=== PATIENT | male | born 1965 | race African-American/Black ===

== ENCOUNTER 2024-08-11 16:23 | Emergency (ER) | payer OTHER ==
[~2024-08-11] VITALS: Ht 182.9 cm; Wt 101.6 kg
--- NOTE | 2024-08-11 16:35 | ERN ---
ED Note History of Present Illness Stated Complaint: FEVER S/P ABDOMINAL SX Chief Complaint: Abdominal Pain Time Seen by MD: 16:28 Dictation: PATIENT IS A 58-YEAR-OLD MALE WHO IS STATUS POST A HERNIA REPAIR AT [facility] BY DR. BRENT GUARDADO, THIS WAS DONE IN JULY 01, 2024. HE HAS HAD DRAINAGE FROM THE SURGICAL SITE IN HIS HAS BEEN BACK MULTIPLE TIMES TO THE HOSPITAL THERE IN [place], DOES NOT WANT TO SEE THE SURGEON AGAIN. HE IS HAVING FEVER AND CHILLS WITH FOUL-SMELLING DRAINAGE FROM THE SURGICAL SITE. NO NAUSEA NO VOMITING NO DIARRHEA Allergies: Coded Allergies: No Known Drug Allergies (Unverified Allergy, Unknown, 08/11/24) Home Meds Active Scripts Acetaminophen with Codeine (Acetaminophen-Cod #3 Tablet) 300 Mg-30 Mg Tablet, 1 TAB PO Q4H PRN for MODERATE TO SEVERE PAIN, #15 TAB 0 Refills Prov:RODRIGO DALAL NP 08/11/24 Amoxicillin/Potassium Clav (Amox Tr-K Clv 875-125 mg Tab) 875 Mg-125 Mg Tablet, 1 EACH PO BID for 5 Days, #10 TAB 0 Refills Prov:RODRIGO DALAL NP 08/11/24 Past Medical History Past Medical History: CAD, CVA, Diabetes-Type II, Hypertension, HI Surgical History: CABG, Other Surgical History Other: HERNIA REPAIR RN Note Reviewed/Agreed w/PFSH: Yes Review of System Dictation CONSTITUTIONAL: NEGATIVE EXCEPT FOR HPI FEVER CHILLS HEAD/FACE: NEGATIVE EXCEPT FOR HPI EENT: NEGATIVE EXCEPT FOR HPI RESPIRATORY: NEGATIVE EXCEPT FOR HPI GASTROINTESTINAL/ABDOMINAL: NEGATIVE EXCEPT FOR HPI MIDLINE ABDOMINAL INCISION TENDER TO TOUCH GENITOURINARY: NEGATIVE EXCEPT FOR HPI MUSCULOSKELETAL: NEGATIVE EXCEPT FOR HPI INTEGUMENTARY: NEGATIVE EXCEPT FOR HPI MIDLINE ABDOMINAL INCISION WITH FOUL- SMELLING DRAINAGE NEUROLOGICAL/PSYCH: NEGATIVE EXCEPT FOR HPI HEMATOLOGIC/LYMPHATIC: NEGATIVE EXCEPT FOR HPI ALL SYSTEMS NEGATIVE, EXCEPT NOTED ABOVE. 13 POINT REVIEW OF SYSTEMS ASSESSED AND ALL NEGATIVE EXCEPT FOR ABOVE. Initial Vital Sign VS Vital Signs Date Time Temp Pulse Resp B/P (MAP) Pulse Ox O2 Delivery O2 Flow Rate FiO2 08/11/24 16:25 98.8 48 20 127/81 99 Room Air 0 08/11/24 17:00 21 Physical Exam Dictation VITAL SIGNS REVIEWED GENERAL APPEARANCE: ALERT, ORIENTED X 3, MODERATE ACUTE DISTRESS, WELL DEVELOPED, NOURISHED. HEAD AND FACE: NON-TRAUMATIC. EYES: PERRL, PINK CONJUNCTIVAS, EYELID NO TRAUMA, ANTERIOR CHAMBER WITH ARCUS SENILIS. EARS: PINNAS INTACT AND NO SIGNS OF TRAUMA OR ERYTHEMA EAR CANALS CLEAR AND NO D ISCHARGE TM NO ERYTHEMA NOSE: NO DISCHARGE, NO BLEEDING. OROPHARYNX: MOUTH NORMAL, TONGUE PINK, PHARYNX CLEAR,NO ERYTHEMA, TONSILS NO EXUDATES, NO ABSCESSES NOTED, MUCOUS MEMBRANE MOIST NECK: SUPPLE, NON-TENDER, NO THYROMEGALY, NO MASSES, NO JVD, NO BRUITS BREAST:DEFERRED CHEST:NO TENDERNESS, NO CREPITUS, NO PARADOXICAL MOVEMENT, NO RETRACTIONS LUNGS:CLEAR, WELL-VENTILATED, SYMMETRIC, NO RALES, NO WHEEZING, NO RHONCHI, NO STRIDOR, GOOD BREATH SOUNDS BILATERALLY HEART: REGULAR RATE, REGULAR RHYTHM, NO MURMUR, NO GALLOPS VASCULAR: NO PERIPHERAL EDEMA, ABDOMEN: SOFT, POSITIVE BOWEL SOUNDS, NONDISTENDED, NO GUARDING, POORLY GRANULATING MIDLINE ABDOMINAL INCISION WITH FOUL-SMELLING DRAINAGE. TENDER TO THE PERIMETER OF THE INCISION. RECTAL: DEFERRED GENITAL: DEFERRED NEUROLOGICAL: NORMAL SPEECH, MOTOR FUNCTION INTACT, SENSORY FUNCTION INTACT MUSCULOSKELETAL: NECK NONTENDER, FULL RANGE OF MOTION, BACK NONTENDER, FULL RANGE OF MOTION, EXTREMITIES: NONTENDER, FULL RANGE OF MOTION SKIN: COLOR PINK, DRY, NO TURGOR, NO RASH, NO LACERATIONS, NO ABRASIONS, NO CONTUSIONS. LYMPHATIC: DEFERRED Results (Laboratory/Radiology) Laboratory/Radiology Laboratory Tests Test 08/11/24 16:51 White Blood Count 8.3 K/uL (4.8-10.8) Red Blood Count 4.82 MIL/uL (4.50-6.20) Hemoglobin 14.3 g/dL (14.0-18.0) Hematocrit 44.1 % (42-54) Mean Corpuscular Volume 91.5 fL (79-99) Mean Corpuscular Hemoglobin 29.7 pg (27.0-33.0) Mean Corpuscular Hemoglobin Concent 32.4 g/dL (32.0-36.0) Red Cell Distribution Width 14.6 % (11.0-15.5) Platelet Count 338 K/uL (130-400) Mean Platelet Volume 10.0 fL (7.5-10.5) Immature Granulocyte % (Auto) 0.4 % (0-1) Neutrophils (%) (Auto) 49.3 % (40.0-77.0) Lymphocytes (%) (Auto) 36.1 % (21.0-51.0) Monocytes (%) (Auto) 10.3 % (3.0-13.0) Eosinophils (%) (Auto) 3.4 % (0.0-8.0) Basophils (%) (Auto) 0.5 % (0.0-5.0) Neutrophils # (Auto) 4.1 K/uL (1.8-7.7) Lymphocytes # (Auto) 3.0 K/uL (1.0-4.8) Monocytes # (Auto) 0.9 K/uL (0.1-1.0) Eosinophils # (Auto) 0.28 K/uL (0.00-0.70) Basophils # (Auto) 0.04 K/uL (0.00-0.20) Absolute Immature Granulocyte (auto 0.03 K/uL (0-1) Nucleated Red Blood Cells 0.0 % (0.0-0.19) Sodium Level 143 mmol/L (136-145) Potassium Level 3.8 mmol/L (3.5-5.1) Chloride Level 103 mmol/L (101-111) Carbon Dioxide Level 29 mmol/L (21-32) Blood Urea Nitrogen 14 mg/dL (7-18) Creatinine 1.4 mg/dL (0.5-1.3) H Glomerular Filtration Rate Calc 59 mL/min (>90) Random Glucose 121 mg/dL (70-105) H Lactic Acid Level 2.3 mmol/L (0.8-2.5) Total Calcium 9.6 mg/dL (8.5-10.1) CT was performed with one or more of the following dose reduction techniques: Automated exposure control, adjustment of the mA and/or kV according to patient size, or use of iterative reconstruction technique. COMPARISON: None FINDINGS: ABDOMEN: Small organized subcutaneous fluid collection along midline mid abdomen at the incision site beginning above the level of the umbilicus with early peripheral enhancement associated. Heart size is normal. Visible lung bases are clear. The liver is normal in size and smooth in contour without lesions or biliary duct dilation. The spleen is normal in size without lesions. The gallbladder appears normal. The pancreas appears normal without pancreatic duct dilation. The adrenal glands appear normal. Small simple left renal cyst, and right kidney appears normal. Cortical nephrograms are symmetric and normal in appearance bilaterally. No evidence for intra-abdominal free air or organized fluid collection. No retrocrural, intraabdominal, or retroperitoneal lymphadenopathy identified. Mild soft and hard plaque formation along the abdominal aortic and iliac vessel man without aneurysmal dilation or dissection. PELVIS: Small to medium-sized fluid-containing nonobstructing right inguinal hernia. No evidence for free air or organized pelvic fluid collection. No significant pelvic adenopathy detected. Visualized small and large bowel loops appear unremarkable. Terminal ileum appears normal. The appendix appears normal. The urinary bladder appears unremarkable. Visible osseous structures are intact. IMPRESSION: 1. Small organized subcutaneous fluid collection along midline mid abdomen at the incision site beginning above the level of the umbilicus with early peripheral enhancement associated suggesting evolving abscess. 2. Small to medium-sized fluid-containing nonobstructing right inguinal hernia. 3. No evidence for any acute intra-abdominal or pelvic process. Labs Reviewed?: Yes ED Course ED Course Orders Procedure Category Date Status Time Blood Cult TONEY 08/11/24 In Process 16: Lactic Acid LAB 08/11/24 Complete 16: Aerobic Culture TONEY 08/11/24 In Process 16: Cbc With Differential LAB 08/11/24 Complete 16: Ct Abdomen/Pelvis CT 08/11/24 Resulted W/Contrast 16:31 0.9%Nacl 1000ml (Ns PHA 08/11/24 Complete 1000ml) 17:00 Ketorolac PHA 08/11/24 Complete Tromethamine 30mg/Ml 17:00 Basic Metabolic Panel LAB 08/11/24 Complete 16:31 Iohexol (Omnipaque) PHA 08/11/24 Complete 17:46 Zosyn 3.375gm+Ns 50ml PHA 08/11/24 Complete (Zosyn 3.375gm+Ns 19:00 Current Medications Medications (Trade) Dose Ordered Sig/French Route PRN Reason Start Time Stop Time Status Last Admin Dose Admin Iohexol (Omnipaque) 75 ml STK-MED ONCE IV 08/11/24 17:46 08/11/24 17:50 DC Ketorolac Tromethamine (toRADol) 30 mg ONCE ONCE IVP 08/11/24 17:00 08/11/24 17:01 DC Piperacillin Sod/ Tazobactam Sod (Zosyn 3.375gm+NS 50ml) 3.375 gm ONCE ONCE IVPB 08/11/24 19:00 08/11/24 19:01 DC 08/11/24 19:02 Sodium Chloride 1,000 ml @ 0 mls/hr ONCE ONCE IV 08/11/24 17:00 08/11/24 17:01 DC 08/11/24 17:48 Vital Signs Date Time Temp Pulse Resp B/P (MAP) Pulse Ox O2 Delivery O2 Flow Rate FiO2 08/11/24 20:03 97.5 78 18 119/68 98 Room Air* 0 21 08/11/24 19:00 98.4 69 18 133/74 99 Room Air* 0 21 08/11/24 18:00 98.4 72 18 132/71 99 Room Air* 0 21 08/11/24 17:00 74 18 130/75 96 Room Air* 0 21 08/11/24 16:25 98.8 48 20 127/81 99 Room Air 0 1940, SPOKE WITH PATIENT AT LENGTH AND HAD OFFERED HIM TO FOR ME TO CALL THE SURGEON ON-CALL. HE SAID HE DID NOT WANT TO WAIT, THAT HE WOULD LIKE TO BE DISCHARGED HOME WITH ANTIBIOTICS AND MILD PAIN MANAGEMENT AND HE WOULD FOLLOW BACK UP WITH DR.DAN GLEZ IN THE NEXT 1-2 DAYS. Medical Decision Making MDM MDM: DIFFERENTIAL DIAGNOSIS: SURGICAL SITE ABSCESS/SEPSIS/ELECTROLYTE IMBALANCE/DEHYDRATION RATIONALE: TESTS CONSIDERED AND ORDERED SECONDARY TO SHARED DECISION MAKING INCLUDE: RADIOLOGY/LABS PREVIOUS OUTSIDE RECORDS REVIEWED: OLD ER VISITS. REVIEWED RISK OF COMPLICATION AND/OR MORBIDITY OR MORTALITY OF PATIENT MANAGEMENT: NONE MEDICATIONS-PER MEDICATION RECONCILIATION NEED FOR HOSPITALIZATION: PATIENT DOES NOT MEET CRITERIA FOR HOSPITALIZATION. PATIENT WISHES TO GO HOME AND WE WILL FOLLOW UP WITH THE ORIGINAL SURGEON AT [facility] NEED FOR EMERGENCY MAJOR/MINOR SURGERY: MAY NEED ULTRASOUND GUIDED DRAINAGE OF EARLY INCISIONAL ABSCESS THERE ARE NO SOCIAL CONCERNS WITH THIS PATIENT. PRESCRIPTION DRUG MANAGEMENT AUGMENTIN/TYLENOL THREE PRESCRIPTIONS WILL INCLUDE SYMPTOMATIC CARE PATIENT'S PRIOR EXTERNAL MEDICAL RECORDS FROM OTHER ER VISITS WERE REVIEWED BY ME INDICATED. PRIOR TESTING AND RESULTS FROM PREVIOUS VISITS WERE REVIEWED. PRIOR TESTS WERE TAKEN INTO ACCOUNT WITH MEDICAL DECISION MAKING AND RESOURCE UTILIZATION, INDEPENDENT HISTORIAN/HISTORIANS WERE USED TO OBTAIN COMPLETE MEDICAL HISTORY. I INDEPENDENTLY INTERPRETED THE TEST THAT WERE PERFORMED, RESULTS WERE REVIEWED BY ME AND CONSIDERED FINDINGS ON RADIOLOGY IF ORDERED. MEDICAL MANAGEMENT AND EXAMINATION INTERPRETATION DISCUSSIONS WERE HAD BY ME WITH OTHER QUALIFIED HEALTHCARE PROFESSIONALS INDICATED FOR THE PATIENT'S CARE. DX & DISP Disposition: Discharge Departure Impression: Primary Impression: Surgical site reaction Additional Impressions: Surgical wound dehiscence, Hyperglycemia, Status post hernia repair Condition: Stable Scripts Acetaminophen with Codeine (Acetaminophen-Cod #3 Tablet) 300 Mg-30 Mg Tablet 1 TAB PO Q4H PRN for MODERATE TO SEVERE PAIN, #15 TAB 0 Refills Prov: RODRIGO DALAL NP 08/11/24 Amoxicillin/Potassium Clav (Amox Tr-K Clv 875-125 mg Tab) 875 Mg-125 Mg Tablet 1 EACH PO BID for 5 Days, #10 TAB 0 Refills Prov: RODRIGO DALAL NP 08/11/24 Additional Instructions: Follow-up with primary care provider in 1 to 2 days. Take medications as directed here in the emergency room. Okay to continue home medications unless otherwise discussed during your visit in the emergency room today. Return to your nearest emergency room if symptoms worsen or if there is no improvement. Call 911 if you need immediate assistance. Take Tylenol or Motrin [id number] as needed and if no contraindications are present. Increase oral hydration. A wound culture or urine culture was ordered here in the emergency room department please follow-up with primary care provider and advise them to get repeat ports from our facility. If you had any Ned wrap/splints that were applied here, please do not remove them until you see your primary care or specialty. Take antibiotics as directed until gone. Continue all instructions from your surgeon at [facility], see him in 1-2 days for follow up. Time of Disposition: 19:40 I have reviewed the case, and I agree with, Diagnosis and Plan RODRIGO DALAL NP Aug 11, 2024 16:35 JOSEPH BOJORQUEZ DO Aug 12, 2024 00:45
[2024-08-11 17:17] LABS: BASOPHILS # (AUTO) 0.04 K/uL (0.00-0.20); BASOPHILS % (AUTO) 0.5 % (0.0-5.0); EOSINOPHILS # (AUTO) 0.28 K/uL (0.00-0.70); EOSINOPHILS % (AUTO) 3.4 % (0.0-8.0); HEMATOCRIT 44.1 % (42-54); IMMATURE GRANULOCYTE ABSOLUTE 0.03 K/uL (0-1); LYMPHOCYTES % (AUTO) 36.1 % (21.0-51.0); MEAN CORPUSCULAR HEMOGLOBIN 29.7 pg (27.0-33.0); MEAN CORPUSCULAR HGB CONC 32.4 g/dL (32.0-36.0); MEAN CORPUSCULAR VOLUME 91.5 fL (79-99); MONOCYTES # (AUTO) 0.9 K/uL (0.1-1.0); MONOCYTES % (AUTO) 10.3 % (3.0-13.0); NEUTROPHILS # (AUTO) 4.1 K/uL (1.8-7.7); NEUTROPHILS % (AUTO) 49.3 % (40.0-77.0); PLATELET COUNT (AUTO) 338 K/uL (130-400); RED BLOOD CELL COUNT(AUTO) 4.82 MIL/uL (4.50-6.20); RED CELL DISTRIBUTION WIDTH 14.6 % (11.0-15.5); WHITE BLOOD COUNT (AUTO) 8.3 K/uL (4.8-10.8)
[2024-08-11 17:31] LABS: CREATININE 1.4 mg/dL (0.5-1.3); POTASSIUM 3.8 mmol/L (3.5-5.1)
[2024-08-11] MEDS ORDERED: IOHEXOL-350 75 ML VIAL IV ONE (17:46)
[2024-08-11] MEDS: 0.9%NACL 1000ML 1,000 ML IV ONE (17:48)
--- NOTE | 2024-08-11 17:48 | HMCIMG ---
CT ABDOMEN WITH CONTRAST. CT PELVIS WITH CONTRAST INDICATION: Draining midline incisional site after hernia repair TECHNIQUE: Routine transaxial images using 5 mm slice thickness were obtained after the intravenous infusion of 75 mL of Omnipaque 350 without adverse effects. Oral contrast was not administered. Rectal contrast was not administered. Coronal and sagittal reformatted images acquired for interpretation. CT was performed with one or more of the following dose reduction techniques: Automated exposure control, adjustment of the mA and/or kV according to patient size, or use of iterative reconstruction technique. COMPARISON: None FINDINGS: ABDOMEN: Small organized subcutaneous fluid collection along midline mid abdomen at the incision site beginning above the level of the umbilicus with early peripheral enhancement associated. Heart size is normal. Visible lung bases are clear. The liver is normal in size and smooth in contour without lesions or biliary duct dilation. The spleen is normal in size without lesions. The gallbladder appears normal. The pancreas appears normal without pancreatic duct dilation. The adrenal glands appear normal. Small simple left renal cyst, and right kidney appears normal. Cortical nephrograms are symmetric and normal in appearance bilaterally. No evidence for intra-abdominal free air or organized fluid collection. No retrocrural, intraabdominal, or retroperitoneal lymphadenopathy identified. Mild soft and hard plaque formation along the abdominal aortic and iliac vessel man without aneurysmal dilation or dissection. PELVIS: Small to medium-sized fluid-containing nonobstructing right inguinal hernia. No evidence for free air or organized pelvic fluid collection. No significant pelvic adenopathy detected. Visualized small and large bowel loops appear unremarkable. Terminal ileum appears normal. The appendix appears normal. The urinary bladder appears unremarkable. Visible osseous structures are intact. IMPRESSION: 1. Small organized subcutaneous fluid collection along midline mid abdomen at the incision site beginning above the level of the umbilicus with early peripheral enhancement associated suggesting evolving abscess. 2. Small to medium-sized fluid-containing nonobstructing right inguinal hernia. 3. No evidence for any acute intra-abdominal or pelvic process.
[2024-08-11] MEDS: ketOROlac 30MG VIAL (30MG/ML) IVP ONE (18:30)
[2024-08-11] MEDS: ZOSYN 3.375GM +NS 50ML IVPB ONE (19:02)
[2024-08-11] MEDS ORDERED: AMOX1TAB16 PO (19:42)
[2024-08-11] MEDS ORDERED: ACET-2079 PO (19:42)
[2024-08-11 20:03] VITALS: BP 119/68; PULSE 78; RESP 18; TEMP 97.5; O2SAT 98
--- NOTE | 2024-08-12 21:24 | EKG ---
[facility] Test Date: 2024-08-11 Test Time: 16:38:54 Pat Name: SAPNA MEEKS Department: ED Room: Gender: M Hazmat Technician: [id number] : 1965 Requested By: ROBERTA STEEN Order Number: [id number] Reading MD: Johny Leach Measurements Intervals [place] Rate: 73 P: 52 SC: 194 QRS: 59 QRSD: 98 T: 145 QT: 388 QTc: 428 Interpretive Statements Sinus rhythm Ventricular trigeminy Probable left atrial enlargement LVH with secondary repolarization abnormality Anterior ST elevation, probably due to LVH No previous ECG available for comparison Electronically Signed On 08-14-2024 12:11:50 CHIEF INSPECTOR by Johny Leach Please click the below link to view image of tracing.
== END 2024-08-11 20:04 | disposition home or self-care (01) ==
LOC: EDH 16:23
DX: T81.31XA Disruption of external operation (surgical) wound, not elsewhere classified, initial encounter (principal); E11.65 Type 2 diabetes mellitus with hyperglycemia; I10 Essential (primary) hypertension; I25.10 Atherosclerotic heart disease of native coronary artery without angina pectoris; Z86.73 Personal history of transient ischemic attack (TIA), and cerebral infarction without residual deficits; Z95.1 Presence of aortocoronary bypass graft; Z98.890 Other specified postprocedural states
CPT/HCPCS: 99285; 74177; 96365; 96361; 80048; 85025; 87040 ×2; 87070; 83605; 36415; 93005; J7030; J1885; J2543; Q9967